=== PATIENT | female | born 2000 | race Caucasian/White ===

== ENCOUNTER 2025-02-01 20:21 | Emergency (ER) | payer SELFPAY ==
[~2025-02-01] VITALS: Ht 162.6 cm; Wt 72.1 kg
[2025-02-01 23:00] VITALS: PULSE 108; RESP 18; TEMP 98.5
[2025-02-01] MEDS ORDERED: SODIUM CHLORIDE FLUSH 10 ML SYR IV PRN (23:45)
[2025-02-02] MEDS: SODIUM CHLORIDE 0.9% 1000ML 1,000 ML IV ONE (00:28)
[2025-02-02] MEDS: LORAZEPAM INJ 2 MG/ML VIAL IV ONE (00:29)
[2025-02-02 01:20] LABS: BASOPHILS % 0.4 % (0.0-1.0); EOSINOPHILS % 0.6 % (0.0-6.0); LYMPHOCYTES % 18.6 % (18.0-39.1); MONOCYTES % 4.8 % (4.4-11.3); NEUTROPHILS % 75.3 % (38.7-80.0); RED CELL DISTRIBUTION WIDTH 12.3 % (11.7-14.4)
[2025-02-02 01:34] LABS: EST GLOMERULAR FILTRATION RATE 125 ML/MIN (>=60)
[2025-02-02 04:08] VITALS: BP 126/84; PULSE 99; RESP 17; TEMP 97.8; O2SAT 100
== END 2025-02-02 02:20 | disposition home or self-care (01) ==
LOC: ER 23:47
DX: R20.2 Paresthesia of skin (principal); F41.0 Panic disorder [episodic paroxysmal anxiety]; F41.9 Anxiety disorder, unspecified
CPT/HCPCS: 36415; 71045; 80053; 83880; 84484; 84702; 85025; 93005; 99284; J2060; J7030